=== PATIENT | female | born 1960 | race Caucasian/White ===

== ENCOUNTER 2020-03-12 13:55 | Outpatient (RCR) | payer MEDICAID, SELFPAY ==
[2020-03-12 14:22] VITALS: BP 152/84; PULSE 81; RESP 16; TEMP 35.5; BMI 34.7
--- NOTE | 2020-03-12 16:09 | RAD_ITS ---
STUDY: X-RAY - PELVIS AND RIGHT HIP REASON FOR EXAM: Female, 59 years old. Rt hip abscess TECHNIQUE: 3 views of the pelvis and hip. COMPARISON: None. FINDINGS: No fracture or dislocation. Hip joints are well-maintained. Phleboliths are noted in the pelvis. Surgical clip on the right. Battery pack is projected over the right lower quadrant. Soft tissues and bony structures are otherwise unremarkable. RAD/HIP, UNI W/ Pelvis 2-3 Views IMPRESSION: Normal x-ray examination of the pelvis and hip. Electronically Signed: Maren Carrasco MD at 23:34 EDT Tel , Service support ,
[2020-03-12 18:00] LABS: Absolute Lymphocyte Count 1.08 X10^3/uL (0.83-4.51); Absolute Neutrophil Count 6.4 X10^3/uL (2.0-7.7); Basophil# 0.03 X10^3/uL; Basophil% 0.4 % (0-1); Eosinophil# 0.01 X10^3/uL; Eosinophils% 0.1 % (0-5); Hematocrit 35.9 % (37-47); Hemoglobin 10.7 g/dL (12.0-15.0); Lymphocyte # 1.08 X10^3/ul (4.0); Lymphocyte % 13.9 % (19-41); Mean Corp Hgb Conc 29.8 g/dL (32-36); Mean Corpuscular Hgb 26.2 pg (27.0-32.0); Mean Platelet Vol. 9.8 fl (6.2-12.0); Monocyte# 0.16 X10^3/uL; Monocyte% 2.1 % (0-10); NRBC Flagged by Analyzer 0 % (0-5); Neutrophil # 6.42 X10^3/uL (2.7-7.7); Neutrophil % 82.5 % (47-70); Platelet Count 627 K/mm3 (150-450); RBC Distribution Width CV 14.2 % (11.6-14.6); RBC Distribution Width SD 45.4 fl (35.1-43.9); Red Blood Count 4.08 M/mm3 (4.2-5.4); White Blood Count 7.8 K/mm3 (4.4-11.0)
[2020-03-12 18:17] LABS: Erythrocyte Sedimentation Rate 41 mm/hr (0-30)
[2020-03-12 18:18] LABS: Hemoglobin A1c 6.2 % (3.8-5.6)
[2020-03-12 18:29] LABS: ALB/GLOB Ratio 0.8 RATIO (0.9-2.4); AST(SGOT) 10 U/L (15-37); Alanine Aminotransfer ALT/SGPT 17 U/L (13-56); Albumin, Serum 3.3 g/dL (3.2-5.0); Alkaline Phosphatase 184 U/L (45-117); Anion Gap 7 (5-15); BUN 19 mg/dL (7-18); BUN/Creat Ratio 16.7 RATIO (10-20); CRP 6.85 mg/L (0.0-3.0); Calcium,Total 8.7 mg/dL (8.5-10.1); Chloride 106 mmol/L (98-107); Creatinine, Serum 1.14 mg/dL (0.55-1.02); EST Glomerular Filtration Rate 52 mL/min (>60); Est Glom Filt Rate - Afr Amer 63 mL/min (>60); Estimated Creatinine Clearance 40.59 ml/min; Glucose 245 mg/dL (74-106); Potassium 4.7 mmol/L (3.5-5.1); Prealbumin 27.7 mg/dL (20.0-40.0); Protein, Total 7.3 g/dL (6.4-8.2); Sodium Level 136 mmol/L (136-145)
--- NOTE | 2020-03-12 22:47 | PCM.WC.HP ---
(1) Abscess of right hip Status: Acute Code(s): L02.415 - Cutaneous abscess of right lower limb (2) Nonhealing surgical wound Status: Acute Code(s): T81.89XA - Other complications of procedures, not elsewhere classified, initial encounter (3) Type 2 diabetes mellitus Status: Acute Code(s): E11.9 - Type 2 diabetes mellitus without complications (4) Insomnia Status: Acute Code(s): G47.00 - Insomnia, unspecified (5) Hypertension Status: Chronic Code(s): I10 - Essential (primary) hypertension History of Present Illness Date of Service: 03/12/20 Chief Complaint: Right hip abscess,nonhealing surgical wound History of Wound: 59 year old white female with a PMH as listed above who presents to wound healing center today with complaint of nonhealing wound to right hip s/p abscess surgical debridement in November 2019. Patient initially noted a abscess to her right hip in October 2019, in november a surgical debridement was done. Patient notes delayed wound healing since then. Has been using the wound vac at 125 mmhg but has not been packing the wound with the vac foam appropriately. Also is on Augmentin and prednisone and has been rinsing the wound with Dakins as well. Denies any signs of systemic infection at this time or localized infection symptoms. Denies any acute concerns. All other systems reviewed and negative with the exception of those listed above. Past Medical History Past Medical History: Chronic Problems Hypertension (Chronic) Surgical History: - - see hpi Allergies/Adverse Reactions: Allergies No Known Allergies Allergy (Verified 03/12/20 14:40) Home Medications: Ambulatory Orders Medication Instructions Recorded Acetaminophen [Acetaminophen Extra 500 mg PO Q6H PRN 03/12/20 Strength] Amoxicillin/Potassium Clav 1 ea PO 03/12/20 [Amox-Clav 500-125 mg Tablet] Aripiprazole [Abilify] 10 mg PO DAILY 03/12/20 Glipizide 5 mg PO BID 03/12/20 Lisinopril [Zestril] 5 mg PO DAILY 03/12/20 Loperamide [Imodium] 2 mg PO Q6H PRN PRN 03/12/20 Melatonin/Pyridoxine HCl (B6) 1.5 ea PO QHS 03/12/20 [Melatonin 3 mg Tablet] Midodrine HCl 5 mg PO TID 03/12/20 Mupirocin [Bactroban] 1 applic TOPICAL BID 03/12/20 Naproxen [Naprosyn] 375 mg PO BID 03/12/20 Nystatin [Mycostatin] 1 applic TOPICAL BID 03/12/20 Prednisone 0 mg 03/12/20 Propranolol HCl 60 mg PO DAILY 03/12/20 Quetiapine Fumarate 300 mg PO QHS 03/12/20 Ropinirole HCl 2 mg PO TID 03/12/20 Tizanidine HCl [Zanaflex] 4 mg PO BID PRN 03/12/20 hydrOXYzine tablet [Atarax tablet] 50 mg PO QHS 03/12/20 Smoking Status: Never smoker Review of Systems Constitutional: Denies: Chills, Fever, Weight Change Eyes: Denies: Pain, Vision Change HEENT: Denies: Difficulty Hearing, Difficulty Swallowing, Sinus Congestion Cardiovascular: Denies: Chest Pain, Palpitations Respiratory: Denies: Cough, Shortness of Breath Gastrointestinal: Denies: Diarrhea, Nausea, Vomiting Genitourinary: Denies: Dysuria, Hematuria Skin: Reports: Wounds - see HPI Endocrine: Denies: Heat/ Cold Intolerance, Polydipsia, Polyuria Hematologic/ Lymphatic: Denies: Easy Bruising, Easy Bleeding - Physical Exam Vital Signs Temp Pulse Resp BP 95.9 F L 81 16 152/84 H 03/12/20 14:22 03/12/20 14:22 03/12/20 14:22 03/12/20 14:22 General: Alert, Oriented x3, Cooperative, No apparent distress HEENT: Atraumatic Oral: Moist Mucosa Neck: Supple, No JVD Lungs: Clear to auscultation, Normal air movement Cardiovascular: Regular rate, Regular Rhythm Abdomen: Soft, Non Tender, Obese Extremities: No clubbing, No cyanosis, No edema, Capillary Refill Less than 3 Seconds, Peripheral Pulses Normal Skin: Ulcer/ Wound - nonhealing wound to right hip, beefy red without any signs of infection at this time, undermines from 9 pm to 3 pm Wound Measurements and Assessment WC - Nurse 2 - General Ulcer CM Notes Start: 03/12/20 14:21 Freq: Status: Active Protocol: Activity Type Activity Date Activity User E-Sign Co-Sign Detail Recorded Client Recorded Date Recorded By Document 03/12/20 14:57 MW [id number] 03/12/20 15:08 MW 03/12/20 14:57 Wound Center Nurse 2 [Procedure/Treatment] #1- R HIP -Time 14:57 -Correct Patient Yes -Correct Side, Site, Position Yes -Correct Procedure Yes -Procedure Performed Yes -Type of Procedure Debridement -Clinical Debridement Subcutaneous -Post Debridement Size (cm) - Length 4.0 -Post Debridement Size (cm) - Width 5.3 -Post Debridement Size (cm) - Depth 3.5 -Total Square (cm) 21.20 -Wound/Ulcer Outcome Not Healed -Ulcer Cleansing Rinsed/ Irrigated with Saline -Foul Odor after Cleansing No -Bioengineered Tissue No -Bleeding Controlled with Pressure -Other TUNNEL @1- 6. 0CM, @3 - 1.5CM -Offloading No -Treatment Response Procedure Tolerated Well [See Physician Procedure note for Specifics] Pain Scale: 0-10 Numeric [Pain] -Is Patient Pain Free? Yes Musculoskeletal: No Tenderness to Palpation of Joints or Extremities, No Muscle Wasting Lymphatic: No Cervical, Supraclavicular, or Inguinal Adenopathy Neurological: Cranial nerves II-XII grossly intact, Neuro grossly intact Psych/Mental Status: Normal Affect, Appropriate, Alert and oriented to time, place, person, mood and affect Debridement Note Post-Debridement Measurements/Treatment WC - Nurse 2 - General Ulcer CM Notes Start: 03/12/20 14:21 Freq: Status: Active Protocol: Activity Type Activity Date Activity User E-Sign Co-Sign Detail Recorded Client Recorded Date Recorded By Document 03/12/20 14:57 MW [id number] 03/12/20 15:08 MW 03/12/20 14:57 Wound Center Nurse 2 #1- R HIP -Time 14:57 -Correct Patient Yes -Correct Side, Site, Position Yes -Correct Procedure Yes -Procedure Performed Yes -Type of Procedure Debridement -Clinical Debridement Subcutaneous -Post Debridement Size (cm) - Length 4.0 -Post Debridement Size (cm) - Width 5.3 -Post Debridement Size (cm) - Depth 3.5 -Total Square (cm) 21.20 -Wound/Ulcer Outcome Not Healed -Ulcer Cleansing Rinsed/ Irrigated with Saline -Foul Odor after Cleansing No -Bioengineered Tissue No -Bleeding Controlled with Pressure -Other TUNNEL @1- 6. 0CM, @3 - 1.5CM -Offloading No -Treatment Response Procedure Tolerated Well Pain Scale: 0-10 Numeric Is Patient Pain Free? Yes Wound debrided: wound to right hip s/p abscess surgical debridement Laterality: Right Type of Debridement: Excisional debridement Anesthesia Used: 5% Lidocaine Gel Depth: Down to and including healthy tissue, in the subcutaneous layer, to muscle Percentage of wound debrided: 100 Instrument Used: 5mm curette, 7mm curette Tissue Removed: slough and devitalized tissue Severity: Necrosis of Muscle Amount of bleeding with debridement: Mild Bleeding Controlled with: Pressure Patient tolerated procedure well Assessment/Plan Clinical Impression(s) from Imaging Studies Hip/Pelvis X-Ray 03/12/20 16:09 IMPRESSION: Normal x-ray examination of the pelvis and hip. Electronically Signed: Maren Carrasco MD at 23:34 EDT Tel , Service support , Assessment: Nonhealing wound to right hip s/p surgical debridement of hip abscess Plan: The patient was seen and examined at the wound center today and updated on the plan of care. A subq/muscular debridement was done today, patient tolerated well. Patients wound care will consist of application of wound vac at 150 mmhg, intructed on how to properly pack and change the black foam. Change three times a week. Wound cultures collected. Bloodwork and imaging ordered. Given the delayed wound healing over the past four months, will apply for advanced skin substitute. Instructed on the importance of increasing protein and vit c intake.Will request surgeon records. Discussed red flag symptoms requiring urgent medical attention. Pt verbalized understanding. Follow up in 1 week or sooner if needed. Office Visits / Consults: [id number] OV L4 New [id number]: [id number] Anny musc/fascia 20 sq cm/<
== END 2020-03-13 23:59 ==
LOC: WC 13:55
PROVIDERS: PCP Physician Assistant Medical; Referring Provider Nurse Practitioner Family; Visit Provider Nurse Practitioner Family
DX: L02.415 Cutaneous abscess of right lower limb (principal); E11.9 Type 2 diabetes mellitus without complications; I10 Essential (primary) hypertension; T81.89XA Other complications of procedures, not elsewhere classified, initial encounter; Z79.1 Long term (current) use of non-steroidal anti-inflammatories (NSAID); Z79.84 Long term (current) use of oral hypoglycemic drugs; Z79.899 Other long term (current) drug therapy
CPT/HCPCS: 11043; 11046; 36415; 73502; 80053; 83036; 84134; 85025; 85652; 86140; 87070; 87075; 87077; 87186; 87205

== ENCOUNTER 2020-03-19 08:49 | Outpatient (RCR) | payer MEDICAID, SELFPAY ==
[2020-03-14 00:43] VITALS: BP 152/84; PULSE 81; RESP 16; TEMP 35.5
[2020-03-19 15:00] VITALS: BP 124/79; PULSE 80; RESP 18; TEMP 36.1; BMI 34.7
--- NOTE | 2020-03-19 20:15 | PN.PCM_ITS ---
(1) Nonhealing surgical wound Status: Acute Current Visit: Yes Code(s): T81.89XA - Other complications of procedures, not elsewhere classified, initial encounter (2) CKD (chronic kidney disease) Status: Chronic Current Visit: Yes Code(s): N18.9 - Chronic kidney disease, unspecified (3) Abscess of right hip Status: Acute Current Visit: No Code(s): L02.415 - Cutaneous abscess of right lower limb (4) Insomnia Status: Acute Current Visit: No Code(s): G47.00 - Insomnia, unspecified (5) Type 2 diabetes mellitus Status: Acute Current Visit: No Code(s): E11.9 - Type 2 diabetes mellitus without complications (6) Hypertension Status: Chronic Current Visit: No Code(s): I10 - Essential (primary) hypertension (7) Delayed wound healing Status: Acute Current Visit: Yes Code(s): T14.8XXD - Other injury of unspecified body region, subsequent encounter Type of Wound Date of Service: 03/19/20 Chief Complaint: Right hip abscess,nonhealing surgical wound History of Wound: 59 year old white female with a PMH as listed above who pres ents to wound healing center today with complaint of nonhealing wound to right hip s/p abscess surgical debridement in November 2019. Patient initially noted a abscess to her right hip in October 2019, in november a surgical debridement was done. Patient notes delayed wound healing since then. Has been using the wound vac at 125 mmhg but has not been packing the wound with the vac foam appropriately. Also is on Augmentin and prednisone and has been rinsing the wound with Dakins as well. Denies any signs of systemic infection at this time or localized infection symptoms. Denies any acute concerns. All other systems reviewed and negative with the exception of those listed above. Progress of Wound: 03/19/2020?no new concerns, cultures were reviewed and showed staph and Prevotella, patient will be placed on Augmentin for 10 days. Blood work reviewed and showed prealbumin at 27, A1c 6.2, CRP and ESR slightly elevated, platelets elevated at 627, patient also has CKD present on the lab work as well. She did have an x-ray done which was reviewed and negative. Patient has been tolerating the wound VAC well. - Physical Exam Vital Signs Temp Pulse Resp BP 97 F L 80 18 124/79 H 03/19/20 15:00 03/19/20 15:00 03/19/20 15:00 03/19/20 15:00 General: Alert, Oriented x3, Cooperative, No apparent distress HEENT: Atraumatic Oral: Moist Mucosa Lungs: Clear to auscultation Cardiovascular: Regular rate Abdomen: Soft, Non Tender Extremities: No clubbing, No cyanosis, No edema Skin: Ulcer/ Wound - See nursing documentation, site is beefy red and still [place] at 12:00 to 3:00 Wound Measurements and Assessment WC - Nurse 1 - General Ulcer Measurement Start: 03/19/20 14:59 Freq: Status: Active Protocol: Activity Type Activity Date Activity User E-Sign Co-Sign Detail Recorded Client Recorded Date Recorded By Document 03/19/20 15:00 RB [id number] 03/19/20 15:02 RB 03/19/20 15:00 Wound Center Nurse 1 [Ulcer Assessment] #1- R HIP -Combined with other wound No -Current Size (cm) - Length 5.2 -Current Size (cm) - Width 4 -Current Size (cm) - Depth 4 -Total Square Cm 20.8 -Tunneling No -Undermining/Tunneling Yes -Undermining/Tunneling Starts (O' 1 clock) -Undermining/Tunneling Ends (O'clock) 1 -Maximum Distance (cm) 6 -Undermining/Tunneling Starts #2 (O' 3 clock) -Undermining/Tunneling Ends #2 (O' 3 clock) -Maximum Distance #2 (cm) 4.5 -Circular Undermining No -Exudate Amt Large -Exudate Type Serosanguineous -Wound Margin Thickened & Rolled Under -Granulation Amt Large (67-100%) -Granulation Quality [place] -Slough/Fibrin Yes -Necrosis Amt Small (1-33%) -Necrotic Tissue Type Adherent Slough -Structure Exposed N/A -Texture ([place]-wound Skin Appearance) Assessed, Excoriation -Moisture ([place]-wound Skin Appearance Assessed ) -Color ([place]-wound Skin Appearance) Assessed -Temperature ([place]-wound Skin No Abnormality Appearance) (Pt Warm) -Tenderness on Palpation ([place]-wound No Skin Appearance) -Ulcer Cleansing Wound Cleanser -Foul Odor after Cleansing No -Anesthetic Used 4% Lidocaine Solution WC - Nurse 2 - General Ulcer CM Notes Start: 03/19/20 14:59 Freq: Status: Active Protocol: Activity Type Activity Date Activity User E-Sign Co-Sign Detail Recorded Client Recorded Date Recorded By Document 03/19/20 15:11 MW [id number] 03/19/20 15:19 MW 03/19/20 15:11 Wound Center Nurse 2 [Procedure/Treatment] -Time 15:13 -Correct Patient Yes -Correct Side, Site, Position Yes -Correct Procedure Yes -Procedure Performed Yes -Type of Procedure Debridement -Clinical Debridement Subcutaneous -Post Debridement Size (cm) - Length 4.8 -Post Debridement Size (cm) - Width 4.5 -Post Debridement Size (cm) - Depth 3.5 -Total Square (cm) 21.60 -Wound/Ulcer Outcome Not Healed -Ulcer Cleansing Rinsed/ Irrigated with Saline -Foul Odor after Cleansing No -Bioengineered Tissue No -Bleeding Controlled with Pressure -Other tunnel @1 -5. 7cm. @3 - 1.0cm -Offloading No -Treatment Response Procedure Tolerated Well [See Physician Procedure note for Specifics] Neurological: Neuro grossly intact Psych/Mental Status: Normal Affect, Appropriate, Alert and oriented to time, place, person, mood and affect Debridement Note Post-Debridement Measurements/Treatment WC - Nurse 2 - General Ulcer CM Notes Start: 03/19/20 14:59 Freq: Status: Active Protocol: Activity Type Activity Date Activity User E-Sign Co-Sign Detail Recorded Client Recorded Date Recorded By Document 03/19/20 15:11 MW [email or web address] 03/19/20 15:19 MW 03/19/20 15:11 Wound Center Nurse 2 #1- R HIP -Time 15:13 -Correct Patient Yes -Correct Side, Site, Position Yes -Correct Procedure Yes -Procedure Performed Yes -Type of Procedure Debridement -Clinical Debridement Subcutaneous -Post Debridement Size (cm) - Length 4.8 -Post Debridement Size (cm) - Width 4.5 -Post Debridement Size (cm) - Depth 3.5 -Total Square (cm) 21.60 -Wound/Ulcer Outcome Not Healed -Ulcer Cleansing Rinsed/ Irrigated with Saline -Foul Odor after Cleansing No -Bioengineered Tissue No -Bleeding Controlled with Pressure -Other tunnel @1 -5. 7cm. @3 - 1.0cm -Offloading No -Treatment Response Procedure Tolerated Well Wound debrided: Nonhealing wound to the right hip Laterality: Right Type of Debridement: Excisional debridement Anesthesia Used: 5% Lidocaine Gel Depth: in the subcutaneous layer, to muscle Percentage of wound debrided: 100 Instrument Used: 5mm curette, 7mm curette Tissue Removed: Slough and devitalized tissue Severity: Fat Layer Exposed Amount of bleeding with debridement: Mild Bleeding Controlled with: Pressure Patient tolerated procedure well Assessment/Plan Active Problems Nonhealing surgical wound (Acute) CKD (chronic kidney disease) (Chronic) Delayed wound healing (Acute) Assessment: Nonhealing wound to right hip s/p surgical debridement of hip abscess Plan: The patient was seen and examined at the wound center today and updated on the plan of care. A subq/muscular debridement was done today, patient tolerated well. Patients wound care will consist of application of wound vac at 150 mmhg, intructed on how to properly pack and change the black foam. Change three times a week. Wound cultures collected And reviewed above, patient placed on antibiotics. Bloodwork and imaging ordered Prior and reviewed above. Given the delayed wound healing over the past four months, will apply for advanced skin substitute. Instructed on the importance of increasing protein and vit c intake.Will request surgeon records. Discussed red flag symptoms requiring urgent medical attention.Did discuss following up with her primary care provider for her elevated platelets and her glycemic control. Pt verbalized understanding. Follow up in 1 week or sooner if needed. 111xxx-113xx: [id number] Anny musc/fascia 20 sq cm/< Add On Codes: 95042 Anny subq tissue add-on
== END 2020-04-13 23:59 ==
LOC: WC 08:49
PROVIDERS: PCP Physician Assistant Medical; Referring Provider Nurse Practitioner Family; Visit Provider Nurse Practitioner Family
DX: T81.89XA Other complications of procedures, not elsewhere classified, initial encounter (principal); L02.415 Cutaneous abscess of right lower limb; N18.9 Chronic kidney disease, unspecified; E11.9 Type 2 diabetes mellitus without complications; G47.00 Insomnia, unspecified; I12.9 Hypertensive chronic kidney disease with stage 1 through stage 4 chronic kidney disease, or unspecified chronic kidney disease
CPT/HCPCS: 11043; 11046; 97605

== ENCOUNTER 2020-04-30 13:00 | Outpatient (RCR) | payer MEDICAID, SELFPAY ==
[2020-04-14 00:44] VITALS: BP 124/79; PULSE 80; RESP 18; TEMP 36.1
[2020-04-23 12:38] VITALS: BP 149/81; PULSE 82; RESP 16; TEMP 35.9; BMI 34.7
--- NOTE | 2020-04-23 14:35 | PCM.WC.PN ---
(1) Nonhealing surgical wound Status: Acute Current Visit: Yes Code(s): T81.89XA - Other complications of procedures, not elsewhere classified, initial encounter (2) Abscess of right hip Status: Acute Current Visit: Yes Code(s): L02.415 - Cutaneous abscess of right lower limb (3) Delayed wound healing Status: Acute Current Visit: Yes Code(s): T14.8XXD - Other injury of unspecified body region, subsequent encounter (4) Insomnia Status: Acute Current Visit: No Code(s): G47.00 - Insomnia, unspecified (5) Type 2 diabetes mellitus Status: Acute Current Visit: No Code(s): E11.9 - Type 2 diabetes mellitus without complications (6) CKD (chronic kidney disease) Status: Chronic Current Visit: No Code(s): N18.9 - Chronic kidney disease, unspecified (7) Hypertension Status: Chronic Current Visit: No Code(s): I10 - Essential (primary) hypertension Type of Wound Date of Service: 04/23/20 Chief Complaint: Right hip abscess,nonhealing surgical wound History of Wound: 59 year old white female with a PMH as listed above who presents to wound healing center today with complaint of nonhealing wound to right hip s/p abscess surgical debridement in November 2019. Patient initially noted a abscess to her right hip in October 2019, in november a surgical debridement was done. Patient notes delayed wound healing since then. Has been using the wound vac at 125 mmhg but has not been packing the wound with the vac foam appropriately. Also is on Augmentin and prednisone and has been rinsing the wound with Dakins as well. Denies any signs of systemic infection at this time or localized infection symptoms. Denies any acute concerns. All other systems reviewed and negative with the exception of those listed above. Progress of Wound: 03/19/2020?no new concerns, cultures were reviewed and showed staph and Prevotella, patient will be placed on Augmentin for 10 days. Blood work reviewed and showed prealbumin at 27, A1c 6.2, CRP and ESR slightly elevated, platelets elevated at 627, patient also has CKD present on the lab work as well. She did have an x-ray done which was reviewed and negative. Patient has been tolerating the wound VAC well. 04/23/20-patient has not been seen at the wound healing center for over a month now. Records are not available for review at this time, however according to patient she had an infection in her abdomen and was hospitalized for a period of time and then in a [facility] facility. She states that she was discharged on 04/13/2020. She states that she has been utilizing the wound VAC for her wound and has not noted much improvement in depth. She has been consistent with the wound VAC. She denies any systemic or localized signs of infection at this time. Denies any new concerns. Will request records for continuity of care. - Physical Exam Vital Signs Temp Pulse Resp BP 96.6 F L 82 16 149/81 H 04/23/20 12:38 04/23/20 12:38 04/23/20 12:38 04/23/20 12:38 General: Alert, Oriented x3, Cooperative, No apparent distress HEENT: Atraumatic Oral: Moist Mucosa Lungs: Clear to auscultation, Normal air movement Cardiovascular: Regular rate, Regular Rhythm Abdomen: Soft, Non Tender Extremities: No clubbing, No cyanosis, No edema Skin: Ulcer/ Wound - See nursing documentation, at 1:00 there is a undermining of approximately 6 cm and depth is currently 4.5 cm, no smell or signs of infection at this time Wound Measurements and Assessment WC - Nurse 1 - General Ulcer Measurement Start: 04/23/20 12:38 Freq: Status: Active Protocol: Activity Type Activity Date Activity User E-Sign Co-Sign Detail Recorded Client Recorded Date Recorded By Document 04/23/20 12:38 [facility] [id number] 04/23/20 12:50 [facility] 04/23/20 12:38 Wound Center Nurse 1 [Ulcer Assessment] #1- R HIP -Combined with other wound No -Current Size (cm) - Length 4.1 -Current Size (cm) - Width 3.4 -Current Size (cm) - Depth 6.6 -Total Square Cm 13.94 -Date of Last Picture (Recall this 04/23/20 field) -Photo Taken Yes -Epithelialization None Present -Tunneling No -Undermining/Tunneling No -Circular Undermining No -Exudate Amt Medium -Exudate Type Purulent -Wound Margin Distinct, Outline Attached -Granulation Amt Large (67-100%) -Granulation Quality Red -Slough/Fibrin No -Necrosis Amt None Present (0 %) -Texture (Floridalma-wound Skin Appearance) Assessed, Scarring -Moisture (Floridalma-wound Skin Appearance Assessed ) -Color (Floridalma-wound Skin Appearance) Assessed, Erythema -Temperature (Floridalma-wound Skin No Abnormality Appearance) (Pt Warm) -Tenderness on Palpation (Floridalma-wound Yes Skin Appearance) -Ulcer Cleansing soapy water -Foul Odor after Cleansing No -Anesthetic Used 4% Lidocaine Solution WC - Nurse 2 - General Ulcer CM Notes Start: 04/23/20 12:38 Freq: Status: Active Protocol: Activity Type Activity Date Activity User E-Sign Co-Sign Detail Recorded Client Recorded Date Recorded By Document 04/23/20 13:23 MW [id number] 04/23/20 13:26 MW 04/23/20 13:23 Wound Center Nurse 2 [Procedure/Treatment] -Time 13:23 -Correct Patient Yes -Correct Side, Site, Position Yes -Correct Procedure Yes -Procedure Performed Yes -Type of Procedure Debridement -Clinical Debridement Subcutaneous -Tissue Removed Subcutaneous -Post Debridement (cm) - Length 4.0 -Post Debridement (cm) - Width 4.5 -Post Debridement (cm) - Depth 4.0 -Total Square (Post) (cm) 18.00 -Area of Debridement (cm) - Length 4.0 -Area of Debridement (cm) - Width 4.5 -Total Square (Area) (cm) 18.00 -Tunneling Yes -Tunneling Position (O'clock) 1 -Tunneling Distance (cm) 6.5 -Undermining/Tunneling No -Circular Undermining No -Wound/Ulcer Outcome Not Healed -Ulcer Cleansing Rinsed/ Irrigated with Saline -Foul Odor after Cleansing No -Bioengineered Tissue No -Bleeding Controlled with Pressure -Offloading No -Debridement - Subq, 1st 20sq cm Yes [See Physician Procedure note for Specifics] Pain Scale: 0-10 Numeric [Pain] -Is Patient Pain Free? Yes JOSE - Nurse 3 - General Ulcer D/C NN Start: 04/23/20 12:38 Freq: Status: Active Protocol: Activity Type Activity Date Activity User E-Sign Co-Sign Detail Recorded Client Recorded Date Recorded By Document 04/23/20 13:41 MT [id number] 04/23/20 13:43 MT 04/23/20 13:41 Wound Care Nurse 3 [Wound Dressing] #1- R HIP -Primary Dressing Applied Aquacel AG 2x2 -Other Dressing aquacel AG rope x 4 -Aquacel AG 2x2 4 WC - Visit Discharge [Visit Discharge Information] -Discharge Condition Stable -Ambulatory Status Ambulatory -Transportation Private Auto -Medication Reconcilliation completed No & provided to patient/care provider -Clinical Summary of Care Provided Yes Neurological: Neuro grossly intact Psych/Mental Status: Normal Affect, Appropriate, Alert and oriented to time, place, person, mood and affect Debridement Note Post-Debridement Measurements/Treatment WC - Nurse 2 - General Ulcer CM Notes Start: 04/23/20 12:38 Freq: Status: Active Protocol: Activity Type Activity Date Activity User E-Sign Co-Sign Detail Recorded Client Recorded Date Recorded By Document 04/23/20 13:23 MW [id number] 04/23/20 13:26 MW 04/23/20 13:23 Wound Center Nurse 2 #1- R HIP -Time 13:23 -Correct Patient Yes -Correct Side, Site, Position Yes -Correct Procedure Yes -Procedure Performed Yes -Type of Procedure Debridement -Clinical Debridement Subcutaneous -Tissue Removed Subcutaneous -Post Debridement (cm) - Length 4.0 -Post Debridement (cm) - Width 4.5 -Post Debridement (cm) - Depth 4.0 -Total Square (Post) (cm) 18.00 -Area of Debridement (cm) - Length 4.0 -Area of Debridement (cm) - Width 4.5 -Total Square (Area) (cm) 18.00 -Tunneling Yes -Tunneling Position (O'clock) 1 -Tunneling Distance (cm) 6.5 -Undermining/Tunneling No -Circular Undermining No -Wound/Ulcer Outcome Not Healed -Ulcer Cleansing Rinsed/ Irrigated with Saline -Foul Odor after Cleansing No -Bioengineered Tissue No -Bleeding Controlled with Pressure -Offloading No -Debridement - Subq, 1st 20sq cm Yes Pain Scale: 0-10 Numeric Is Patient Pain Free? Yes - Nurse 3 - General Ulcer D/C NN Start: 04/23/20 12:38 Freq: Status: Active Protocol: Activity Type Activity Date Activity User E-Sign Co-Sign Detail Recorded Client Recorded Date Recorded By Document 04/23/20 13:41 MT [id number] 04/23/20 13:43 MT 04/23/20 13:41 Wound Care Nurse 3 #1- R HIP -Primary Dressing Applied Aquacel AG 2x2 -Other Dressing aquacel AG rope x 4 -Aquacel AG 2x2 4 WC - Visit Discharge Discharge Condition Stable Ambulatory Status Ambulatory Transportation Private Auto Medication Reconcilliation completed & No provided to patient/care provider Clinical Summary of Care Provided Yes Wound debrided: Surgical wound right hip Laterality: Right Type of Debridement: Excisional debridement Anesthesia Used: 5% Lidocaine Gel Depth: in the subcutaneous layer, to muscle Percentage of wound debrided: 100 Instrument Used: 5mm curette Tissue Removed: Slough and devitalized tissue Severity: Fat Layer Exposed Amount of bleeding with debridement: Mild Bleeding Controlled with: Pressure, Compression and gauze Patient tolerated procedure well Assessment/Plan Active Problems Abscess of right hip (Acute) Nonhealing surgical wound (Acute) Delayed wound healing (Acute) Assessment: Nonhealing wound to right hip s/p surgical debridement of hip abscess Plan: The patient was seen and examined at the wound center today and updated on the plan of care. A subq/muscular debridement was done today, patient tolerated well. Patients wound care will consist of hold wound vac at 150 mmhg due to not a lot of progress when she has been consistent with it over the last month, will pack with Silvercel rope and change daily. Will request recent hospitalization and SNF records for continuity of care. Bloodwork and imaging ordered Prior and reviewed above. Given the delayed wound healing over the past four months, will apply for advanced skin substitute. Instructed on the importance of increasing protein and vit c intake.Will request surgeon records. Discussed red flag symptoms requiring urgent medical attention.Did discuss following up with her primary care provider for her elevated platelets and her glycemic control. Pt verbalized understanding. Follow up in 1 week or sooner if needed. [id number]: [id number] Anny musc/fascia 20 sq cm/<
[2020-04-30 12:37] VITALS: BP 177/83; PULSE 69; RESP 16; TEMP 35.7; BMI 34.7
--- NOTE | 2020-04-30 13:11 | PCM.WC.PN ---
(1) Nonhealing surgical wound Status: Acute Current Visit: Yes Code(s): T81.89XA - Other complications of procedures, not elsewhere classified, initial encounter (2) Abscess of right hip Status: Acute Current Visit: Yes Code(s): L02.415 - Cutaneous abscess of right lower limb (3) Delayed wound healing Status: Acute Current Visit: Yes Code(s): T14.8XXD - Other injury of unspecified body region, subsequent encounter (4) Insomnia Status: Acute Current Visit: No Code(s): G47.00 - Insomnia, unspecified (5) Type 2 diabetes mellitus Status: Acute Current Visit: No Code(s): E11.9 - Type 2 diabetes mellitus without complications (6) CKD (chronic kidney disease) Status: Chronic Current Visit: No Code(s): N18.9 - Chronic kidney disease, unspecified (7) Hypertension Status: Chronic Current Visit: No Code(s): I10 - Essential (primary) hypertension Type of Wound Date of Service: 04/30/20 Chief Complaint: Right hip abscess,nonhealing surgical wound History of Wound: 59 year old white female with a PMH as listed above who presents to wound healing center today with complaint of nonhealing wound to right hip s/p abscess surgical debridement in November 2019. Patient initially noted a abscess to her right hip in October 2019, in november a surgical debridement was done. Patient notes delayed wound healing since then. Has been using the wound vac at 125 mmhg but has not been packing the wound with the vac foam appropriately. Also is on Augmentin and prednisone and has been rinsing the wound with Dakins as well. Denies any signs of systemic infection at this time or localized infection symptoms. Denies any acute concerns. All other systems reviewed and negative with the exception of those listed above. Progress of Wound: 03/19/2020?no new concerns, cultures were reviewed and showed staph and Prevotella, patient will be placed on Augmentin for 10 days. Blood work reviewed and showed prealbumin at 27, A1c 6.2, CRP and ESR slightly elevated, platelets elevated at 627, patient also has CKD present on the lab work as well. She did have an x-ray done which was reviewed and negative. Patient has been tolerating the wound VAC well. 04/23/20-patient has not been seen at the wound healing center for over a month now. Records are not available for review at this time, however according to patient she had an infection in her abdomen and was hospitalized for a period of time and then in a alf facility. She states that she was discharged on 04/13/2020. She states that she has been utilizing the wound VAC for her wound and has not noted much improvement in depth. She has been consistent with the wound VAC. She denies any systemic or localized signs of infection at this time. Denies any new concerns. Will request records for continuity of care. 04/30/2020?no new complaints, doing well off of the wound VAC, Tylenol has improved slightly in size, denies any systemic or localized signs of infection at this time. Will collect repeat cultures today. - Physical Exam Vital Signs Temp Pulse Resp BP 96.2 F L 69 16 177/83 H 04/30/20 12:37 04/30/20 12:37 04/30/20 12:37 04/30/20 12:37 General: Alert, Oriented x3, Cooperative, No apparent distress HEENT: Atraumatic Oral: Moist Mucosa Lungs: Clear to auscultation, Normal air movement Cardiovascular: Regular rate, Regular Rhythm Abdomen: Soft, Non Tender Extremities: No clubbing, No cyanosis, No edema Skin: Ulcer/ Wound - See nursing documentation, slough and devitalized tissue present, no signs of infection at this time, right hip postsurgical wound Wound Measurements and Assessment WC - Nurse 1 - General Ulcer Measurement Start: 04/23/20 12:38 Freq: Status: Active Protocol: Activity Type Activity Date Activity User E-Sign Co-Sign Detail Recorded Client Recorded Date Recorded By Document 04/30/20 12:37 [facility] [id number] 04/30/20 12:44 [facility] 04/30/20 12:37 Wound Center Nurse 1 [Ulcer Assessment] #1- R HIP -Combined with other wound No -Current Size (cm) - Length 3.6 -Current Size (cm) - Width 2.8 -Current Size (cm) - Depth 2 -Total Square Cm 10.08 -Photo Taken No -Epithelialization None Present -Tunneling Yes -Tunneling Position (O'clock) 1 -Tunneling Distance (cm) 5.1 -Undermining/Tunneling No -Circular Undermining No -Exudate Amt Medium -Exudate Type Serosanguineous -Wound Margin Distinct, Outline Attached -Granulation Amt Large (67-100%) -Granulation Quality Red -Slough/Fibrin No -Necrosis Amt None Present (0 %) -Texture (Floridalma-wound Skin Appearance) Assessed, Scarring -Moisture (Floridalma-wound Skin Appearance Assessed ) -Color (Floridalma-wound Skin Appearance) Assessed -Temperature (Floridalma-wound Skin No Abnormality Appearance) (Pt Warm) -Tenderness on Palpation (Floridalma-wound Yes Skin Appearance) -Ulcer Cleansing Rinsed/ Irrigated with Saline -Foul Odor after Cleansing No -Anesthetic Used 4% Lidocaine Solution JOSE - Nurse 2 - General Ulcer CM Notes Start: 04/23/20 12:38 Freq: Status: Active Protocol: Activity Type Activity Date Activity User E-Sign Co-Sign Detail Recorded Client Recorded Date Recorded By Document 04/30/20 12:56 MW [id number] 04/30/20 13:04 MW 04/30/20 12:56 Wound Center Nurse 2 [Procedure/Treatment] -Time 12:56 -Correct Patient Yes -Correct Side, Site, Position Yes -Correct Procedure Yes -Procedure Performed Yes -Type of Procedure Debridement -Clinical Debridement Muscle / Fascia -Tissue Removed Muscle -Post Debridement (cm) - Length 4.2 -Post Debridement (cm) - Width 3.3 -Post Debridement (cm) - Depth 4.0 -Total Square (Post) (cm) 13.86 -Area of Debridement (cm) - Length 4.2 -Area of Debridement (cm) - Width 3.3 -Total Square (Area) (cm) 13.86 -Tunneling No -Tunneling Position (O'clock) 1 -Tunneling Distance (cm) 6.0 -Undermining/Tunneling No -Circular Undermining No -Wound/Ulcer Outcome Not Healed -Ulcer Cleansing Rinsed/ Irrigated with Saline -Foul Odor after Cleansing No -Bioengineered Tissue No -Bleeding Controlled with Pressure -Offloading No -Debridement - Subq, 1st 20sq cm No -Debridement - Muscle / Fascia, 1st Yes 20sq cm [See Physician Procedure note for Specifics] Pain Scale: 0-10 Numeric [Pain] -Is Patient Pain Free? Yes JOSE - Nurse 3 - General Ulcer D/C NN Start: 04/23/20 12:38 Freq: Status: Active Protocol: Activity Type Activity Date Activity User E-Sign Co-Sign Detail Recorded Client Recorded Date Recorded By Document 04/30/20 13:09 [facility] [id number] 04/30/20 13:09 [facility] 04/30/20 13:09 Wound Care Nurse 3 [Wound Dressing] #1- R HIP -Ulcer Cleansing Rinsed/ Irrigated with Saline -Foul Odor after Cleansing No -Primary Dressing Applied Aquacel AG 4x4 -Primary Dressing Covered/Secured Secured with with Tape,Other -Other Covering ABD -Aquacel AG 4x4 3 [Post Procedure Tolerated] -Treatment Response Procedure Tolerated Well Pain Scale: 0-10 Numeric [Pain] -Is Patient Pain Free? Yes WC - Visit Discharge [Visit Discharge Information] -Discharge Condition Stable -Ambulatory Status Ambulatory -Transportation Private Auto Neurological: Neuro grossly intact Psych/Mental Status: Normal Affect, Appropriate, Alert and oriented to time, place, person, mood and affect Debridement Note Post-Debridement Measurements/Treatment WC - Nurse 2 - General Ulcer CM Notes Start: 04/23/20 12:38 Freq: Status: Active Protocol: Activity Type Activity Date Activity User E-Sign Co-Sign Detail Recorded Client Recorded Date Recorded By Document 04/23/20 13:23 MW [id number] 04/23/20 13:26 MW Document 04/30/20 12:56 MW [id number] 04/30/20 13:04 MW 04/23/20 04/30/20 13:23 12:56 Wound Center Nurse 2 #1- R HIP -Time 13:23 12:56 -Correct Patient Yes Yes -Correct Side, Site, Position Yes Yes -Correct Procedure Yes Yes -Procedure Performed Yes Yes -Type of Procedure Debridement Debridement -Clinical Debridement Subcutaneous Muscle / Fascia -Tissue Removed Subcutaneous Muscle -Post Debridement (cm) - Length 4.0 4.2 -Post Debridement (cm) - Width 4.5 3.3 -Post Debridement (cm) - Depth 4.0 4.0 -Total Square (Post) (cm) 18.00 13.86 -Area of Debridement (cm) - Length 4.0 4.2 -Area of Debridement (cm) - Width 4.5 3.3 -Total Square (Area) (cm) 18.00 13.86 -Tunneling Yes No -Tunneling Position (O'clock) 1 1 -Tunneling Distance (cm) 6.5 6.0 -Undermining/Tunneling No No -Circular Undermining No No -Wound/Ulcer Outcome Not Healed Not Healed -Ulcer Cleansing Rinsed/ Rinsed/ Irrigated with Irrigated with Saline Saline -Foul Odor after Cleansing No No -Bioengineered Tissue No No -Bleeding Controlled with Pressure Pressure -Offloading No No -Debridement - Subq, 1st 20sq cm Yes No -Debridement - Muscle / Fascia, 1st Yes 20sq cm Pain Scale: 0-10 Numeric Is Patient Pain Free? Yes Yes - Nurse 3 - General Ulcer D/C NN Start: 04/23/20 12:38 Freq: Status: Active Protocol: Activity Type Activity Date Activity User E-Sign Co-Sign Detail Recorded Client Recorded Date Recorded By Document 04/23/20 13:41 [facility] [id number] 04/23/20 13:43 [place] Document 04/30/20 13:09 [facility] [id number] 04/30/20 13:09 [facility] 04/23/20 04/30/20 13:41 13:09 Wound Care Nurse 3 #1- R HIP -Ulcer Cleansing Rinsed/ Irrigated with Saline -Foul Odor after Cleansing No -Primary Dressing Applied Aquacel AG 2x2 Aquacel AG 4x4 -Other Dressing aquacel AG rope x 4 -Primary Dressing Covered/Secured with Secured with Tape,Other -Other Covering ABD -Aquacel AG 4x4 3 -Aquacel AG 2x2 4 Treatment Response Procedure Tolerated Well Pain Scale: 0-10 Numeric Is Patient Pain Free? Yes - Visit Discharge Discharge Condition Stable Stable Ambulatory Status Ambulatory Ambulatory Transportation Private Auto Private Auto Medication Reconcilliation completed & No provided to patient/care provider Clinical Summary of Care Provided Yes Wound debrided: Surgical wound to right hip Laterality: Right Type of Debridement: Excisional debridement Anesthesia Used: 5% Lidocaine Gel Depth: Down to and including healthy tissue, in the subcutaneous layer, to muscle Percentage of wound debrided: 100 Instrument Used: 7mm curette Tissue Removed: Slough and devitalized tissue Severity: Fat Layer Exposed Amount of bleeding with debridement: Mild Bleeding Controlled with: Pressure Patient tolerated procedure well Assessment/Plan Active Problems Abscess of right hip (Acute) Nonhealing surgical wound (Acute) Delayed wound healing (Acute) Assessment: Nonhealing wound to right hip s/p surgical debridement of hip abscess Plan: The patient was seen and examined at the wound center today and updated on the plan of care. A subq/muscular debridement was done today, patient tolerated well. Patients wound care will consist of hold wound vac at 150 mmhg due to not a lot of progress when she has been consistent with it over the last month, will pack with Silvercel rope and change daily. Will request recent hospitalization and SNF records for continuity of care. Bloodwork and imaging ordered Prior and reviewed above. Given the delayed wound healing over the past four months, will apply for advanced skin substitute. Instructed on the importance of increasing protein and vit c intake.Will request surgeon records. Discussed red flag symptoms requiring urgent medical attention.Did discuss following up with her primary care provider for her elevated platelets and her glycemic control. Pt verbalized understanding. Follow up in 1 week or sooner if needed. [id number]: [id number] Anny musc/fascia 20 sq cm/<
== END 2020-05-13 23:59 ==
LOC: WC 13:00
PROVIDERS: PCP Physician Assistant Medical; Referring Provider Nurse Practitioner Family; Visit Provider Nurse Practitioner Family
DX: T81.89XA Other complications of procedures, not elsewhere classified, initial encounter (principal); L02.415 Cutaneous abscess of right lower limb; T14.8XXD Other injury of unspecified body region, subsequent encounter; G47.00 Insomnia, unspecified; E11.9 Type 2 diabetes mellitus without complications; N18.9 Chronic kidney disease, unspecified; I12.9 Hypertensive chronic kidney disease with stage 1 through stage 4 chronic kidney disease, or unspecified chronic kidney disease
CPT/HCPCS: 11042; 11043; 87070; 87075; 87205

== ENCOUNTER 2020-05-28 13:15 | Outpatient (RCR) | payer MEDICAID, SELFPAY ==
[2020-05-14 00:36] VITALS: BP 177/83; PULSE 69; RESP 16; TEMP 35.7
[2020-05-14 12:57] VITALS: BP 148/81; PULSE 71; RESP 16; TEMP 36.2; BMI 34.7
[2020-05-14 14:01] VITALS: BP 123/58; PULSE 67; RESP 18; TEMP 36.3
[2020-05-14 15:25] LABS: Erythrocyte Sedimentation Rate 16 mm/hr (0-30)
[2020-05-14 15:27] LABS: Absolute Lymphocyte Count 2.72 X10^3/uL (0.83-4.51); Absolute Neutrophil Count 5.3 X10^3/uL (2.0-7.7); Basophil# 0.08 X10^3/uL; Basophil% 0.9 % (0-1); Eosinophil# 0.21 X10^3/uL; Eosinophils% 2.3 % (0-5); Hematocrit 37.7 % (37-47); Hemoglobin 11.4 g/dL (12.0-15.0); Lymphocyte # 2.72 X10^3/ul (4.0); Lymphocyte % 30.1 % (19-41); Mean Corp Hgb Conc 30.2 g/dL (32-36); Mean Corpuscular Volume 86.1 fL (81-99); Mean Platelet Vol. 10.4 fl (6.2-12.0); Monocyte# 0.69 X10^3/uL; Monocyte% 7.6 % (0-10); NRBC Flagged by Analyzer 0 % (0-5); Neutrophil # 5.31 X10^3/uL (2.7-7.7); Neutrophil % 58.8 % (47-70); Platelet Count 422 K/mm3 (150-450); RBC Distribution Width CV 18.5 % (11.6-14.6); RBC Distribution Width SD 57.8 fl (35.1-43.9); Red Blood Count 4.38 M/mm3 (4.2-5.4)
[2020-05-14 15:38] LABS: ALB/GLOB Ratio 0.9 RATIO (0.9-2.4); AST(SGOT) 13 U/L (15-37); Alanine Aminotransfer ALT/SGPT 16 U/L (13-56); Albumin, Serum 3.4 g/dL (3.2-5.0); Alkaline Phosphatase 151 U/L (45-117); Anion Gap 6 (5-15); BUN 10 mg/dL (7-18); BUN/Creat Ratio 10.9 RATIO (10-20); CRP 4.21 mg/L (0.0-3.0); Calcium,Total 8.9 mg/dL (8.5-10.1); Chloride 108 mmol/L (98-107); Creatinine, Serum 0.91 mg/dL (0.55-1.02); EST Glomerular Filtration Rate 67 mL/min (>60); Est Glom Filt Rate - Afr Amer 81 mL/min (>60); Estimated Creatinine Clearance 50.85 ml/min; Globulin 3.6 g/dL (2.2-4.2); Glucose 118 mg/dL (74-106); Prealbumin 26.6 mg/dL (20.0-40.0); Sodium Level 140 mmol/L (136-145)
[2020-05-14 15:40] LABS: Hemoglobin A1c 5.8 % (3.8-5.6)
--- NOTE | 2020-05-14 16:16 | PCM.WC.PN ---
(1) Nonhealing surgical wound Status: Acute Current Visit: Yes Code(s): T81.89XA - Other complications of procedures, not elsewhere classified, initial encounter (2) Abscess of right hip Status: Acute Current Visit: Yes Code(s): L02.415 - Cutaneous abscess of right lower limb (3) Delayed wound healing Status: Acute Current Visit: Yes Code(s): T14.8XXD - Other injury of unspecified body region, subsequent encounter (4) Insomnia Status: Acute Current Visit: No Code(s): G47.00 - Insomnia, unspecified (5) Type 2 diabetes mellitus Status: Acute Current Visit: No Code(s): E11.9 - Type 2 diabetes mellitus without complications (6) CKD (chronic kidney disease) Status: Chronic Current Visit: No Code(s): N18.9 - Chronic kidney disease, unspecified (7) Hypertension Status: Chronic Current Visit: No Code(s): I10 - Essential (primary) hypertension Type of Wound Date of Service: 05/14/20 Chief Complaint: Right hip abscess,nonhealing surgical wound History of Wound: 59 year old white female with a PMH as listed above who presents to wound healing center today with complaint of nonhealing wound to right hip s/p abscess surgical debridement in November 2019. Patient initially noted a abscess to her right hip in October 2019, in november a surgical debridement was done. Patient notes delayed wound healing since then. Has been using the wound vac at 125 mmhg but has not been packing the wound with the vac foam appropriately. Also is on Augmentin and prednisone and has been rinsing the wound with Dakins as well. Denies any signs of systemic infection at this time or localized infection symptoms. Denies any acute concerns. All other systems reviewed and negative with the exception of those listed above. Progress of Wound: 03/19/2020?no new concerns, cultures were reviewed and showed staph and Prevotella, patient will be placed on Augmentin for 10 days. Blood work reviewed and showed prealbumin at 27, A1c 6.2, CRP and ESR slightly elevated, platelets elevated at 627, patient also has CKD present on the lab work as well. She did have an x-ray done which was reviewed and negative. Patient has been tolerating the wound VAC well. 04/23/20-patient has not been seen at the wound healing center for over a month now. Records are not available for review at this time, however according to patient she had an infection in her abdomen and was hospitalized for a period of time and then in a intermediate facility. She states that she was discharged on 04/13/2020. She states that she has been utilizing the wound VAC for her wound and has not noted much improvement in depth. She has been consistent with the wound VAC. She denies any systemic or localized signs of infection at this time. Denies any new concerns. Will request records for continuity of care. 04/30/2020?no new complaints, doing well off of the wound VAC, Tylenol has improved slightly in size, denies any systemic or localized signs of infection at this time. Will collect repeat cultures today. 05/14/20-stable no new concerns, still on vac holiday, no significant improvement, therefore will resume vac at 150 mmhg. - Physical Exam Vital Signs Temp Pulse Resp BP 97.3 F L 67 18 123/58 H 05/14/20 14:01 05/14/20 14:01 05/14/20 14:01 05/14/20 14:01 General: Alert, Oriented x3, Cooperative, No apparent distress HEENT: Atraumatic Oral: Moist Mucosa Lungs: Clear to auscultation, Normal air movement Cardiovascular: Regular rate, Regular Rhythm Abdomen: Soft, Non Tender Extremities: No clubbing, No cyanosis, No edema Skin: Ulcer/ Wound - See nursing documentation, slough and devitalized tissue present, no signs of obvious infection at this time, still Tunnel present at 1 PM Wound Measurements and Assessment WC - Nurse 1 - General Ulcer Measurement Start: 05/14/20 12:56 Freq: Status: Active Protocol: Activity Type Activity Date Activity User E-Sign Co-Sign Detail Recorded Client Recorded Date Recorded By Document 05/14/20 12:57 [facility] [id number] 05/14/20 13:02 [facility] 05/14/20 12:57 Wound Center Nurse 1 [Ulcer Assessment] #1- R HIP -Combined with other wound No -Current Size (cm) - Length 2.5 -Current Size (cm) - Width 2 -Current Size (cm) - Depth 5 -Total Square Cm 5.0 -Photo Taken No -Epithelialization None Present -Tunneling Yes -Tunneling Position (O'clock) 1 -Tunneling Distance (cm) 5 -Undermining/Tunneling No -Circular Undermining No -Exudate Amt Large -Exudate Type Serosanguineous -Wound Margin Distinct, Outline Attached -Granulation Amt Large (67-100%) -Granulation Quality Red -Slough/Fibrin No -Necrosis Amt None Present (0 %) -Texture (Flor[place]ma-wound Skin Appearance) Assessed, Excoriation, Scarring -Moisture ([place]ma-wound Skin Appearance Assessed ) -Color ([place]ma-wound Skin Appearance) Assessed -Temperature ([place]-wound Skin No Abnormality Appearance) (Pt Warm) -Tenderness on Palpation ([place]-wound Yes Skin Appearance) -Ulcer Cleansing Rinsed/ Irrigated with Saline -Foul Odor after Cleansing No -Anesthetic Used 4% Lidocaine Solution JOSE - Nurse 2 - General Ulcer CM Notes Start: 05/14/20 12:56 Freq: Status: Active Protocol: Activity Type Activity Date Activity User E-Sign Co-Sign Detail Recorded Client Recorded Date Recorded By Document 05/14/20 13:26 MW [id number] 05/14/20 13:30 MW 05/14/20 13:26 Wound Center Nurse 2 [Procedure/Treatment] -Time 13:27 -Correct Patient Yes -Correct Side, Site, Position Yes -Correct Procedure Yes -Procedure Performed Yes -Type of Procedure Debridement -Clinical Debridement Muscle / Fascia -Tissue Removed Subcutaneous -Post Debridement (cm) - Length 2.6 -Post Debridement (cm) - Width 2.3 -Post Debridement (cm) - Depth 4.2 -Total Square (Post) (cm) 5.98 -Area of Debridement (cm) - Length 2.6 -Area of Debridement (cm) - Width 2.3 -Total Square (Area) (cm) 5.98 -Tunneling No -Tunneling Position (O'clock) 1 -Tunneling Distance (cm) 5.5 -Undermining/Tunneling No -Circular Undermining No -Wound/Ulcer Outcome Not Healed -Ulcer Cleansing Rinsed/ Irrigated with Saline -Foul Odor after Cleansing No -Bioengineered Tissue No -Bleeding Controlled with Pressure -Offloading No -Debridement - Subq, 1st 20sq cm Yes [See Physician Procedure note for Specifics] Pain Scale: 0-10 Numeric [Pain] -Is Patient Pain Free? Yes JOSE - Nurse 3 - General Ulcer D/C NN Start: 05/14/20 12:56 Freq: Status: Active Protocol: Activity Type Activity Date Activity User E-Sign Co-Sign Detail Recorded Client Recorded Date Recorded By Document 05/14/20 14:01 DL [id number] 05/14/20 14:05 DL 05/14/20 14:01 Wound Care Nurse 3 [Wound Dressing] #1- R HIP -Ulcer Cleansing Rinsed/ Irrigated with Saline -Foul Odor after Cleansing No -Negative Pressure Wound Therapy Continue -Setting (mmHg) 150 -Negative Pressure is Continuous -NPWT Application Charge ($) NPWT </= 50 sq cm [[place]-Wound Care] -[place]-Wound Care Barrier [Post Procedure Tolerated] -Treatment Response Procedure Tolerated Well Vital Signs [Temperature Protocol: VS] -Temperature (97.8 F-99.1 F) 97.3 F L -Temperature Source Temporal [Pulse] -Pulse Rate (60-100) 67 -Pulse Location Monitor [Respirations] -Respiratory Rate (12-18) 18 -Respiratory rate source Observation [Blood Pressure] -Blood Pressure (90/60-120/80) 123/58 H -Blood Pressure Mean (mm Hg) 79 Pain Scale: 0-10 Numeric [Pain] -Is Patient Pain Free? Yes WC - Visit Discharge [Visit Discharge Information] -Discharge Condition Stable -Ambulatory Status Ambulatory -Transportation Private Auto Neurological: Neuro grossly intact Psych/Mental Status: Normal Affect, Appropriate, Alert and oriented to time, place, person, mood and affect Debridement Note Post-Debridement Measurements/Treatment WC - Nurse 2 - General Ulcer CM Notes Start: 05/14/20 12:56 Freq: Status: Active Protocol: Activity Type Activity Date Activity User E-Sign Co-Sign Detail Recorded Client Recorded Date Recorded By Document 05/14/20 13:26 MW [id number] 05/14/20 13:30 MW 05/14/20 13:26 Wound Center Nurse 2 #1- R HIP -Time 13:27 -Correct Patient Yes -Correct Side, Site, Position Yes -Correct Procedure Yes -Procedure Performed Yes -Type of Procedure Debridement -Clinical Debridement Muscle / Fascia -Tissue Removed Subcutaneous -Post Debridement (cm) - Length 2.6 -Post Debridement (cm) - Width 2.3 -Post Debridement (cm) - Depth 4.2 -Total Square (Post) (cm) 5.98 -Area of Debridement (cm) - Length 2.6 -Area of Debridement (cm) - Width 2.3 -Total Square (Area) (cm) 5.98 -Tunneling No -Tunneling Position (O'clock) 1 -Tunneling Distance (cm) 5.5 -Undermining/Tunneling No -Circular Undermining No -Wound/Ulcer Outcome Not Healed -Ulcer Cleansing Rinsed/ Irrigated with Saline -Foul Odor after Cleansing No -Bioengineered Tissue No -Bleeding Controlled with Pressure -Offloading No -Debridement - Subq, 1st 20sq cm Yes Pain Scale: 0-10 Numeric Is Patient Pain Free? Yes - Nurse 3 - General Ulcer D/C NN Start: 05/14/20 12:56 Freq: Status: Active Protocol: Activity Type Activity Date Activity User E-Sign Co-Sign Detail Recorded Client Recorded Date Recorded By Document 05/14/20 14:01 DL [id number] 05/14/20 14:05 DL 05/14/20 14:01 Wound Care Nurse 3 #1- R HIP -Ulcer Cleansing Rinsed/ Irrigated with Saline -Foul Odor after Cleansing No -Negative Pressure Wound Therapy Continue -Setting (mmHg) 150 -Negative Pressure is Continuous -NPWT Application Charge ($) NPWT </= 50 sq cm [place]-Wound Care Barrier Treatment Response Procedure Tolerated Well Vital Signs Temperature (97.8 F-99.1 F) 97.3 F L Temperature Source Temporal Pulse Rate (60-100) 67 Pulse Location Monitor Respiratory Rate (12-18) 18 Respiratory rate source Observation Blood Pressure (90/60-120/80) 123/58 H Blood Pressure Mean (mm Hg) 79 Pain Scale: 0-10 Numeric Is Patient Pain Free? Yes WC - Visit Discharge Discharge Condition Stable Ambulatory Status Ambulatory Transportation Private Auto Wound debrided: Postsurgical wound to right hip Laterality: Right Type of Debridement: Excisional debridement Anesthesia Used: 5% Lidocaine Gel Depth: in the subcutaneous layer Percentage of wound debrided: 100 Instrument Used: 5mm curette Tissue Removed: Slough and devitalized tissue Severity: Fat Layer Exposed Amount of bleeding with debridement: Mild Bleeding Controlled with: Pressure Patient tolerated procedure well Assessment/Plan Active Problems Abscess of right hip (Acute) Nonhealing surgical wound (Acute) Delayed wound healing (Acute) Assessment: Nonhealing wound to right hip s/p surgical debridement of hip abscess Plan: The patient was seen and examined at the wound center today and updated on the plan of care. A subq/muscular debridement was done today, patient tolerated well. Patients wound care will consist of wound vac at 150 mmhg and 3 times a week, black foam. Will request recent hospitalization and SNF records for continuity of care. Bloodwork and imaging ordered Prior and reviewed above. Given the delayed wound healing over the past four months, will apply for advanced skin substitute. Instructed on the importance of increasing protein and vit c intake.Will request surgeon records. Discussed red flag symptoms requiring urgent medical attention.Did discuss following up with her primary care provider for her elevated platelets and her glycemic control. Pt verbalized understanding. Follow up in 1 week or sooner if needed. [id number]: [id number] Anny musc/fascia 20 sq cm/<
[2020-05-21 13:12] VITALS: BP 163/117; PULSE 117; RESP 20; TEMP 36.3; BMI 34.7
[2020-05-21 14:17] VITALS: BP 154/88; PULSE 82; RESP 18
--- NOTE | 2020-05-21 16:19 | PCM.WC.PN ---
(1) Nonhealing surgical wound Status: Acute Current Visit: Yes Code(s): T81.89XA - Other complications of procedures, not elsewhere classified, initial encounter (2) Abscess of right hip Status: Acute Current Visit: Yes Code(s): L02.415 - Cutaneous abscess of right lower limb (3) Delayed wound healing Status: Acute Current Visit: Yes Code(s): T14.8XXD - Other injury of unspecified body region, subsequent encounter (4) Insomnia Status: Acute Current Visit: No Code(s): G47.00 - Insomnia, unspecified (5) Type 2 diabetes mellitus Status: Acute Current Visit: No Code(s): E11.9 - Type 2 diabetes mellitus without complications (6) CKD (chronic kidney disease) Status: Chronic Current Visit: No Code(s): N18.9 - Chronic kidney disease, unspecified (7) Hypertension Status: Chronic Current Visit: No Code(s): I10 - Essential (primary) hypertension Type of Wound Date of Service: 05/21/20 Chief Complaint: Right hip abscess,nonhealing surgical wound History of Wound: 59 year old white female with a PMH as listed above who presents to wound healing center today with complaint of nonhealing wound to right hip s/p abscess surgical debridement in November 2019. Patient initially noted a abscess to her right hip in October 2019, in november a surgical debridement was done. Patient notes delayed wound healing since then. Has been using the wound vac at 125 mmhg but has not been packing the wound with the vac foam appropriately. Also is on Augmentin and prednisone and has been rinsing the wound with Dakins as well. Denies any signs of systemic infection at this time or localized infection symptoms. Denies any acute concerns. All other systems reviewed and negative with the exception of those listed above. Progress of Wound: 03/19/2020?no new concerns, cultures were reviewed and showed staph and Prevotella, patient will be placed on Augmentin for 10 days. Blood work reviewed and showed prealbumin at 27, A1c 6.2, CRP and ESR slightly elevated, platelets elevated at 627, patient also has CKD present on the lab work as well. She did have an x-ray done which was reviewed and negative. Patient has been tolerating the wound VAC well. 04/23/20-patient has not been seen at the wound healing center for over a month now. Records are not available for review at this time, however according to patient she had an infection in her abdomen and was hospitalized for a period of time and then in a longterm facility. She states that she was discharged on 04/13/2020. She states that she has been utilizing the wound VAC for her wound and has not noted much improvement in depth. She has been consistent with the wound VAC. She denies any systemic or localized signs of infection at this time. Denies any new concerns. Will request records for continuity of care. 04/30/2020?no new complaints, doing well off of the wound VAC, Tylenol has improved slightly in size, denies any systemic or localized signs of infection at this time. Will collect repeat cultures today. 05/14/20-stable no new concerns, still on vac holiday, no significant improvement, therefore will resume vac at 150 mmhg. 05/14/20-stable no new concerns, no significant improvement, therefore will continue with vac at 150 mmhg and 1st application of purrapply AM today given delayed wound healing, may need surgical consult if no significant improvement. - Physical Exam Vital Signs Temp Pulse Resp BP 97.3 F L 82 18 154/88 H 05/21/20 13:12 05/21/20 14:17 05/21/20 14:17 05/21/20 14:17 General: Alert, Oriented x3, Cooperative, No apparent distress HEENT: Atraumatic Oral: Moist Mucosa Lungs: Clear to auscultation, Normal air movement, No rhonchi, No wheeze Cardiovascular: Regular rate, Regular Rhythm, Normal S1, Normal S2 Abdomen: Soft, Non Tender Extremities: No clubbing, No cyanosis, No edema Skin: Ulcer/ Wound - See nursing documentation, slough and devitalized tissue present, no signs of infection at this time Wound Measurements and Assessment WC - Nurse 1 - General Ulcer Measurement Start: 05/14/20 12:56 Freq: Status: Active Protocol: Activity Type Activity Date Activity User E-Sign Co-Sign Detail Recorded Client Recorded Date Recorded By Document 05/21/20 13:12 DL [id number] 05/21/20 13:19 DL 05/21/20 13:12 Wound Center Nurse 1 [Ulcer Assessment] #1- R HIP -Current Size (cm) - Length 2.8 -Current Size (cm) - Width 1.6 -Current Size (cm) - Depth 5.5 -Total Square Cm 4.48 -Photo Taken No -Exudate Amt Small -Exudate Type Serosanguineous -Wound Margin Distinct, Outline Attached -Granulation Amt Large (67-100%) -Granulation Quality Red -Necrosis Amt Small (1-33%) -Necrotic Tissue Type Adherent Slough -Structure Exposed N/A -Texture (Flor[place]ma-wound Skin Appearance) Scarring -Moisture ([place]-wound Skin Appearance No Abnormality ) -Color ([place]ma-wound Skin Appearance) No Abnormality -Temperature ([place]-wound Skin No Abnormality Appearance) (Pt Warm) -Tenderness on Palpation ([place]ma-wound Yes Skin Appearance) -Ulcer Cleansing Wound Cleanser -Foul Odor after Cleansing Yes -Anesthetic Used 4% Lidocaine Solution WC - Nurse 2 - General Ulcer CM Notes Start: 05/14/20 12:56 Freq: Status: Active Protocol: Activity Type Activity Date Activity User E-Sign Co-Sign Detail Recorded Client Recorded Date Recorded By Document 05/21/20 13:39 MW [id number] 05/21/20 13:49 MW 05/21/20 13:39 Wound Center Nurse 2 [Procedure/Treatment] -Time 13:39 -Correct Patient Yes -Correct Side, Site, Position Yes -Correct Procedure Yes -Procedure Performed Yes -Type of Procedure Debridement -Clinical Debridement Subcutaneous -Tissue Removed Subcutaneous -Post Debridement (cm) - Length 2.5 -Post Debridement (cm) - Width 2.1 -Post Debridement (cm) - Depth 4.0 -Total Square (Post) (cm) 5.25 -Area of Debridement (cm) - Length 2.5 -Area of Debridement (cm) - Width 2.1 -Total Square (Area) (cm) 5.25 -Tunneling No -Tunneling Position (O'clock) 1 -Tunneling Distance (cm) 5.5 -Undermining/Tunneling No -Circular Undermining No -Wound/Ulcer Outcome Not Healed -Ulcer Cleansing Rinsed/ Irrigated with Saline -Foul Odor after Cleansing No -Bioengineered Tissue Yes -Type of Bioengineered Tissue PuraPly AM -Expiration Date 08/22/21 -Product Lot Number [id number] -Percent Used 100 -Saline Lot Number [id number] -Bleeding Controlled with Pressure -Offloading No -Treatment Response Procedure Tolerated Well -Debridement - Subq, 1st 20sq cm No -Apply Skin Sub - 1st 25 sq cm - Legs 1 -PuraPly AM (per sq cm) 25 [See Physician Procedure note for Specifics] Pain Scale: 0-10 Numeric [Pain] -Is Patient Pain Free? Yes - Nurse 3 - General Ulcer D/C NN Start: 05/14/20 12:56 Freq: Status: Active Protocol: Activity Type Activity Date Activity User E-Sign Co-Sign Detail Recorded Client Recorded Date Recorded By Document 05/21/20 14:17 RB [id number] 05/21/20 14:18 RB 05/21/20 14:17 Wound Care Nurse 3 [Wound Dressing] #1- R HIP -Negative Pressure Wound Therapy Continue -Setting (mmHg) 150 -Negative Pressure is Continuous -NPWT Application Charge ($) NPWT </= 50 sq cm [Post Procedure Tolerated] -Treatment Response Procedure Tolerated Well Vital Signs [Pulse] -Pulse Rate (60-100) 82 -Pulse Location Monitor [Respirations] -Respiratory Rate (12-18) 18 -Respiratory rate source Observation [Blood Pressure] -Blood Pressure (90/60-120/80) 154/88 H -Blood Pressure Mean (mm Hg) 110 -Source Monitor -Position Sitting -Blood Pressure Location Left Arm Pain Scale: 0-10 Numeric [Pain] -Is Patient Pain Free? Yes - Visit Discharge [Visit Discharge Information] -Discharge Condition Stable -Ambulatory Status Ambulatory -Transportation Private Auto -Medication Reconcilliation completed No & provided to patient/care provider -Clinical Summary of Care Provided Yes Neurological: Neuro grossly intact Psych/Mental Status: Normal Affect, Appropriate, Alert and oriented to time, place, person, mood and affect Debridement Note Post-Debridement Measurements/Treatment - Nurse 2 - General Ulcer CM Notes Start: 05/14/20 12:56 Freq: Status: Active Protocol: Activity Type Activity Date Activity User E-Sign Co-Sign Detail Recorded Client Recorded Date Recorded By Document 05/14/20 13:26 MW [id number] 05/14/20 13:30 MW Document 05/21/20 13:39 MW [id number] 05/21/20 13:49 MW 05/14/20 05/21/20 13:26 13:39 Wound Center Nurse 2 #1- R HIP -Time 13:27 13:39 -Correct Patient Yes Yes -Correct Side, Site, Position Yes Yes -Correct Procedure Yes Yes -Procedure Performed Yes Yes -Type of Procedure Debridement Debridement -Clinical Debridement Muscle / Fascia Subcutaneous -Tissue Removed Subcutaneous Subcutaneous -Post Debridement (cm) - Length 2.6 2.5 -Post Debridement (cm) - Width 2.3 2.1 -Post Debridement (cm) - Depth 4.2 4.0 -Total Square (Post) (cm) 5.98 5.25 -Area of Debridement (cm) - Length 2.6 2.5 -Area of Debridement (cm) - Width 2.3 2.1 -Total Square (Area) (cm) 5.98 5.25 -Tunneling No No -Tunneling Position (O'clock) 1 1 -Tunneling Distance (cm) 5.5 5.5 -Undermining/Tunneling No No -Circular Undermining No No -Wound/Ulcer Outcome Not Healed Not Healed -Ulcer Cleansing Rinsed/ Rinsed/ Irrigated with Irrigated with Saline Saline -Foul Odor after Cleansing No No -Bioengineered Tissue No Yes -Type of Bioengineered Tissue PuraPly AM -Expiration Date 08/22/21 -Product Lot Number [id number] -Percent Used 100 -Saline Lot Number [id number] -Bleeding Controlled with Pressure Pressure -Offloading No No -Treatment Response Procedure Tolerated Well -Debridement - Subq, 1st 20sq cm Yes No -Apply Skin Sub - 1st 25 sq cm - Legs 1 -PuraPly AM (per sq cm) 25 Pain Scale: 0-10 Numeric Is Patient Pain Free? Yes Yes WC - Nurse 3 - General Ulcer D/C NN Start: 05/14/20 12:56 Freq: Status: Active Protocol: Activity Type Activity Date Activity User E-Sign Co-Sign Detail Recorded Client Recorded Date Recorded By Document 05/14/20 14:01 DL [id number] 05/14/20 14:05 DL Document 05/21/20 14:17 RB [id number] 05/21/20 14:18 RB 05/14/20 05/21/20 14:01 14:17 Wound Care Nurse 3 #1- R HIP -Ulcer Cleansing Rinsed/ Irrigated with Saline -Foul Odor after Cleansing No -Negative Pressure Wound Therapy Continue Continue -Setting (mmHg) 150 150 -Negative Pressure is Continuous Continuous -NPWT Application Charge ($) NPWT </= 50 sq NPWT </= 50 sq cm cm [place]-Wound Care Barrier Treatment Response Procedure Procedure Tolerated Well Tolerated Well Vital Signs Temperature (97.8 F-99.1 F) 97.3 F L Temperature Source Temporal Pulse Rate (60-100) 67 82 Pulse Location Monitor Monitor Respiratory Rate (12-18) 18 18 Respiratory rate source Observation Observation Blood Pressure (90/60-120/80) 123/58 H 154/88 H Blood Pressure Mean (mm Hg) 79 110 Source Monitor Position Sitting Blood Pressure Location Left Arm Pain Scale: 0-10 Numeric Is Patient Pain Free? Yes Yes WC - Visit Discharge Discharge Condition Stable Stable Ambulatory Status Ambulatory Ambulatory Transportation Private Auto Private Auto Medication Reconcilliation completed & No provided to patient/care provider Clinical Summary of Care Provided Yes Wound debrided: Right hip postsurgical nonhealing wound Laterality: Right Type of Debridement: Excisional debridement Anesthesia Used: 5% Lidocaine Gel Depth: in the subcutaneous layer, to muscle Percentage of wound debrided: 100 Instrument Used: 5mm curette Tissue Removed: Slough and devitalized tissue Severity: Fat Layer Exposed Amount of bleeding with debridement: Mild Bleeding Controlled with: Pressure Patient tolerated procedure well Assessment/Plan Active Problems Abscess of right hip (Acute) Nonhealing surgical wound (Acute) Delayed wound healing (Acute) Assessment: Nonhealing wound to right hip s/p surgical debridement of hip abscess Plan: The patient was seen and examined at the wound center today and updated on the plan of care. A subq/muscular debridement was done today, patient tolerated well. Patients wound care will consist of wound vac at 150 mmhg and change weekly, black foam this was placed on top of purapply AM first application, 100 percent utilized with no wastage and secured with adaptic touch and steris. Will request recent hospitalization and SNF records for continuity of care. Bloodwork and imaging ordered Prior and reviewed above. Given the delayed wound healing over the past four months, will apply for advanced skin substitute. Instructed on the importance of increasing protein and vit c intake.Will request surgeon records. Discussed red flag symptoms requiring urgent medical attention.Did discuss following up with her primary care provider for her elevated platelets and her glycemic control. Pt verbalized understanding. Follow up in 1 week or sooner if needed. [id number]: [id number] Skin sub graft trnk/arm/leg
[2020-05-28 13:11] VITALS: BP 165/90; PULSE 75; BMI 34.7
[2020-05-28 13:52] VITALS: BP 150/88; PULSE 80; RESP 18
--- NOTE | 2020-05-28 16:27 | PN.PCM_ITS ---
(1) Nonhealing surgical wound Status: Acute Code(s): T81.89XA - Other complications of procedures, not elsewhere classified, initial encounter (2) Abscess of right hip Status: Acute Code(s): L02.415 - Cutaneous abscess of right lower limb (3) Delayed wound healing Status: Acute Code(s): T14.8XXD - Other injury of unspecified body region, subsequent encounter (4) Insomnia Status: Acute Code(s): G47.00 - Insomnia, unspecified (5) Type 2 diabetes mellitus Status: Acute Code(s): E11.9 - Type 2 diabetes mellitus without complications (6) CKD (chronic kidney disease) Status: Chronic Code(s): N18.9 - Chronic kidney disease, unspecified (7) Hypertension Status: Chronic Code(s): I10 - Essential (primary) hypertension Type of Wound Date of Service: 05/28/20 Chief Complaint: Right hip abscess,nonhealing surgical wound History of Wound: 59 year old white female with a PMH as listed above who presents to wound healing center today with complaint of nonhealing wound to right hip s/p abscess surgical debridement in November 2019. Patient initially noted a abscess to her right hip in October 2019, in november a surgical debridement was done. Patient notes delayed wound healing since then. Has been using the wound vac at 125 mmhg but has not been packing the wound with the vac foam appropriately. Also is on Augmentin and prednisone and has been rinsing the wound with Dakins as well. Denies any signs of systemic infection at this time or localized infection symptoms. Denies any acute concerns. All other systems reviewed and negative with the exception of those listed above. Progress of Wound: 03/19/2020?no new concerns, cultures were reviewed and showed staph and Prevotella, patient will be placed on Augmentin for 10 days. Blood work reviewed and showed prealbumin at 27, A1c 6.2, CRP and ESR slightly elevated, platelets elevated at 627, patient also has CKD present on the lab work as well. She did have an x-ray done which was reviewed and negative. Patient has been tolerating the wound VAC well. 04/23/20-patient has not been seen at the wound healing center for over a month now. Records are not available for review at this time, however according to patient she had an infection in her abdomen and was hospitalized for a period of time and then in a senior care facility. She states that she was discharged on 04/13/2020. She states that she has been utilizing the wound VAC for her wound and has not noted much improvement in depth. She has been consistent with the wound VAC. She denies any systemic or localized signs of infection at this time. Denies any new concerns. Will request records for continuity of care. 04/30/2020?no new complaints, doing well off of the wound VAC, Tylenol has improved slightly in size, denies any systemic or localized signs of infection at this time. Will collect repeat cultures today. 05/14/20-stable no new concerns, still on vac holiday, no significant improvement, therefore will resume vac at 150 mmhg. 05/14/20-stable no new concerns, no significant improvement, therefore will continue with vac at 150 mmhg and 1st application of purrapply AM today given delayed wound healing, may need surgical consult if no significant improvement. 05/28/20-stable no new concerns, no significant improvement, therefore will discontinue with vac, pt requesting surgical consult at [facility].Referral placed - Physical Exam Vital Signs Temp Pulse Resp BP 97.3 F L 80 18 150/88 H 05/21/20 13:12 05/28/20 13:52 05/28/20 13:52 05/28/20 13:52 General: Alert, Oriented x3, Cooperative, No apparent distress HEENT: Atraumatic Oral: Moist Mucosa Lungs: Clear to auscultation, Normal air movement, No rhonchi, No wheeze Cardiovascular: Regular rate, Regular Rhythm Abdomen: Soft, Non Tender Extremities: No clubbing, No cyanosis, No edema Skin: Ulcer/ Wound - see nursing documentation, slough and devitalized tissue present, no signs of infection at this time Wound Measurements and Assessment WC - Nurse 1 - General Ulcer Measurement Start: 05/14/20 12:56 Freq: Status: Active Protocol: Activity Type Activity Date Activity User E-Sign Co-Sign Detail Recorded Client Recorded Date Recorded By Document 05/28/20 13:11 VT [id number] 05/28/20 13:16 VT 05/28/20 13:11 Wound Center Nurse 1 [Ulcer Assessment] #1- R HIP -Current Size (cm) - Length 2.3 -Current Size (cm) - Width 3.5 -Current Size (cm) - Depth 0.7 -Total Square Cm 8.05 -Exudate Amt Small -Exudate Type Serosanguineous -Wound Margin Distinct, Outline Attached -Granulation Amt Large (67-100%) -Granulation Quality Pale,[place],Red -Necrosis Amt None Present (0 %) -Texture ([place]-wound Skin Appearance) Assessed -Moisture ([place]-wound Skin Appearance Assessed, ) Maceration -Color ([place]-wound Skin Appearance) Assessed -Temperature ([place]-wound Skin No Abnormality Appearance) (Pt Warm) -Tenderness on Palpation ([place]-wound No Skin Appearance) -Ulcer Cleansing Rinsed/ Irrigated with Saline -Foul Odor after Cleansing No -Anesthetic Used 4% Lidocaine Solution [Edema Assessment] -Lower Limb Edema Present NA WC - Nurse 2 - General Ulcer CM Notes Start: 05/14/20 12:56 Freq: Status: Active Protocol: Activity Type Activity Date Activity User E-Sign Co-Sign Detail Recorded Client Recorded Date Recorded By Document 05/28/20 13:31 MW [id number] 05/28/20 13:37 MW 05/28/20 13:31 Wound Center Nurse 2 [Procedure/Treatment] #1- R HIP -Time 13:32 -Correct Patient Yes -Correct Side, Site, Position Yes -Correct Procedure Yes -Procedure Performed Yes -Type of Procedure Debridement -Clinical Debridement Muscle / Fascia -Tissue Removed Muscle -Post Debridement (cm) - Length 3.3 -Post Debridement (cm) - Width 2.0 -Post Debridement (cm) - Depth 4.8 -Total Square (Post) (cm) 6.60 -Area of Debridement (cm) - Length 3.3 -Area of Debridement (cm) - Width 2.0 -Total Square (Area) (cm) 6.60 -Tunneling No -Tunneling Position (O'clock) 1 -Tunneling Distance (cm) 6.3 -Undermining/Tunneling No -Circular Undermining No -Wound/Ulcer Outcome Not Healed -Ulcer Cleansing Rinsed/ Irrigated with Saline -Foul Odor after Cleansing No -Bioengineered Tissue No -Bleeding Controlled with Pressure -Offloading No -Treatment Response Procedure Tolerated Well -Debridement - Muscle / Fascia, 1st Yes 20sq cm [See Physician Procedure note for Specifics] Pain Scale: 0-10 Numeric [Pain] -Is Patient Pain Free? Yes WC - Nurse 3 - General Ulcer D/C NN Start: 05/14/20 12:56 Freq: Status: Active Protocol: Activity Type Activity Date Activity User E-Sign Co-Sign Detail Recorded Client Recorded Date Recorded By Document 05/28/20 13:52 MT [id number] 05/28/20 13:53 MT 05/28/20 13:52 Wound Care Nurse 3 [Wound Dressing] #1- R HIP -Primary Dressing Applied Aquacel Extra -Primary Dressing Covered/Secured Dry Gauze, with Secured with Tape -Aquacel Extra 2 Vital Signs [Pulse] -Pulse Rate (60-100) 80 -Pulse Location Monitor [Respirations] -Respiratory Rate (12-18) 18 -Respiratory rate source Observation [Blood Pressure] -Blood Pressure (90/60-120/80) 150/88 H -Blood Pressure Mean (mm Hg) 108 -Source Monitor -Position Supine -Blood Pressure Location Right Arm Pain Scale: 0-10 Numeric [Pain] -Is Patient Pain Free? Yes - Visit Discharge [Visit Discharge Information] -Discharge Condition Stable -Ambulatory Status Ambulatory -Transportation Private Auto -Medication Reconcilliation completed No & provided to patient/care provider -Clinical Summary of Care Provided Yes Neurological: Neuro grossly intact Psych/Mental Status: Normal Affect, Appropriate, Alert and oriented to time, place, person, mood and affect Debridement Note Post-Debridement Measurements/Treatment WC - Nurse 2 - General Ulcer CM Notes Start: 05/14/20 12:56 Freq: Status: Active Protocol: Activity Type Activity Date Activity User E-Sign Co-Sign Detail Recorded Client Recorded Date Recorded By Document 05/14/20 13:26 MW [id number] 05/14/20 13:30 MW Document 05/21/20 13:39 MW [id number] 05/21/20 13:49 MW Document 05/28/20 13:31 MW [id number] 05/28/20 13:37 MW 05/14/20 05/21/20 05/28/20 13:26 13:39 13:31 Wound Center Nurse 2 #1- R HIP -Time 13:27 13:39 13:32 -Correct Patient Yes Yes Yes -Correct Side, Site, Position Yes Yes Yes -Correct Procedure Yes Yes Yes -Procedure Performed Yes Yes Yes -Type of Procedure Debridement Debridement Debridement -Clinical Debridement Muscle / Fascia Subcutaneous Muscle / Fascia -Tissue Removed Subcutaneous Subcutaneous Muscle -Post Debridement (cm) - Length 2.6 2.5 3.3 -Post Debridement (cm) - Width 2.3 2.1 2.0 -Post Debridement (cm) - Depth 4.2 4.0 4.8 -Total Square (Post) (cm) 5.98 5.25 6.60 -Area of Debridement (cm) - Length 2.6 2.5 3.3 -Area of Debridement (cm) - Width 2.3 2.1 2.0 -Total Square (Area) (cm) 5.98 5.25 6.60 -Tunneling No No No -Tunneling Position (O'clock) 1 1 1 -Tunneling Distance (cm) 5.5 5.5 6.3 -Undermining/Tunneling No No No -Circular Undermining No No No -Wound/Ulcer Outcome Not Healed Not Healed Not Healed -Ulcer Cleansing Rinsed/ Rinsed/ Rinsed/ Irrigated with Irrigated with Irrigated with Saline Saline Saline -Foul Odor after Cleansing No No No -Bioengineered Tissue No Yes No -Type of Bioengineered Tissue PuraPly AM -Expiration Date 08/22/21 -Product Lot Number [id number] -Percent Used 100 -Saline Lot Number [id number] -Bleeding Controlled with Pressure Pressure Pressure -Offloading No No No -Treatment Response Procedure Procedure Tolerated Well Tolerated Well -Debridement - Subq, 1st 20sq cm Yes No -Debridement - Muscle / Fascia, 1st Yes 20sq cm -Apply Skin Sub - 1st 25 sq cm - Legs 1 -PuraPly AM (per sq cm) 25 Pain Scale: 0-10 Numeric Is Patient Pain Free? Yes Yes Yes WC - Nurse 3 - General Ulcer D/C NN Start: 05/14/20 12:56 Freq: Status: Active Protocol: Activity Type Activity Date Activity User E-Sign Co-Sign Detail Recorded Client Recorded Date Recorded By Document 05/14/20 14:01 DL [id number] 05/14/20 14:05 DL Document 05/21/20 14:17 RB [id number] 05/21/20 14:18 RB Document 05/28/20 13:52 MT [id number] 05/28/20 13:53 MT 05/14/20 05/21/20 05/28/20 14:01 14:17 13:52 Wound Care Nurse 3 #1- R HIP -Ulcer Cleansing Rinsed/ Irrigated with Saline -Foul Odor after Cleansing No -Negative Pressure Wound Therapy Continue Continue -Setting (mmHg) 150 150 -Negative Pressure is Continuous Continuous -Primary Dressing Applied Aquacel Extra -Primary Dressing Covered/Secured with Dry Gauze, Secured with Tape -NPWT Application Charge ($) NPWT </= 50 sq NPWT </= 50 sq cm cm -Aquacel Extra 2 [place]-Wound Care Barrier Treatment Response Procedure Procedure Tolerated Well Tolerated Well Vital Signs Temperature (97.8 F-99.1 F) 97.3 F L Temperature Source Temporal Pulse Rate (60-100) 67 82 80 Pulse Location Monitor Monitor Monitor Respiratory Rate (12-18) 18 18 18 Respiratory rate source Observation Observation Observation Blood Pressure (90/60-120/80) 123/58 H 154/88 H 150/88 H Blood Pressure Mean (mm Hg) 79 110 108 Source Monitor Monitor Position Sitting Supine Blood Pressure Location Left Arm Right Arm Pain Scale: 0-10 Numeric Is Patient Pain Free? Yes Yes Yes WC - Visit Discharge Discharge Condition Stable Stable Stable Ambulatory Status Ambulatory Ambulatory Ambulatory Transportation Private Auto Private Auto Private Auto Medication Reconcilliation completed & No No provided to patient/care provider Clinical Summary of Care Provided Yes Yes Wound debrided: right hip surgical wound Laterality: Right Type of Debridement: Excisional debridement Anesthesia Used: 5% Lidocaine Gel Depth: Down to and including healthy tissue, in the subcutaneous layer, to mu scle Percentage of wound debrided: 100 Instrument Used: 5mm curette, 7mm curette Tissue Removed: slough and devitalized tissue Severity: Fat Layer Exposed Amount of bleeding with debridement: Mild Bleeding Controlled with: Pressure Patient tolerated procedure well Assessment/Plan Assessment: Nonhealing wound to right hip s/p surgical debridement of hip abscess Plan: The patient was seen and examined at the wound center today and updated on the plan of care. A subq/muscular debridement was done today, patient tolerated well. Patients wound care will consist of packing the wound daily with [place] rope. No significant improvement with the wound VAC or advanced skin substitute, referral to general surgery at [facility] per patient request. Will request recent hospitalization and SNF records for continuity of care. Bloodwork and imaging ordered Prior and reviewed above. Instructed on the importance of increasing protein and vit c intake.Discussed red flag symptoms requiring urgent medical attention.Did discuss following up with her primary care provider for her elevated platelets and her glycemic control. Pt verbalized understanding. Follow up in 2 weeks or sooner if needed. [id number]: [id number] Anny musc/fascia 20 sq cm/<
== END 2020-06-13 23:59 ==
LOC: WC 13:15
PROVIDERS: PCP Physician Assistant Medical; Referring Provider Nurse Practitioner Family; Visit Provider Nurse Practitioner Family
DX: L02.415 Cutaneous abscess of right lower limb (principal); G47.00 Insomnia, unspecified; T81.89XA Other complications of procedures, not elsewhere classified, initial encounter; I12.9 Hypertensive chronic kidney disease with stage 1 through stage 4 chronic kidney disease, or unspecified chronic kidney disease; N18.9 Chronic kidney disease, unspecified; E11.9 Type 2 diabetes mellitus without complications
CPT/HCPCS: 11042; 11043; 15271; 80053; 83036; 84134; 85025; 85652; 86140; 97605; Q4196